=== PATIENT | male | born 1950 | race Caucasian/White ===

== ENCOUNTER 2017-08-06 17:39 | Emergency (ER) | payer MEDICARE, BC ==
[~2017-08-06] VITALS: Ht 177.8 cm; Wt 94.1 kg
[~2017-08-06 17:39] MED LIST: KETOROLAC10 MG PO; NO HOME MEDICATIONS
[2017-08-06] MEDS ORDERED: PRINIVIL10 MG PO (18:08)
[2017-08-06 18:21] LABS: BASO % 0.3 % (0.0-2.0); EOS # 0.1 (0.0-0.7); EOS % 1.1 % (0-4.0); GRAN # 7.6 (1.4-6.5); GRAN % 78.8 % (42.2-75.2); HEMATOCRIT 44.7 % (42.0-52.0); HEMOGLOBIN 15.5 g/dl (13.5-18.0); LYMPH # 1.1 (1.2-3.4); LYMPH % 11.4 % (20.0-51.0); MEAN CELL VOLUME 93 fl (80.0-100.0); MEAN CORPUSCULAR HEMOGLOBIN 32 pg (27.0-31.0); MEAN CORPUSCULAR HGB CONC 35 g/dl (33.0-37.0); MEAN PLATELET VOLUME 8.2 fl (7.4-10.4); MONO # 0.8 (0.1-0.6); MONO % 8.1 % (1.7-9.3); PLATELET COUNT 222 K/mm3 (130-400)
[2017-08-06 18:29] VITALS: TEMP 98.5
[2017-08-06 18:33] LABS: C-REACTIVE PROTEIN 1.7 mg/dL (0.0-0.9); CALCIUM 8.9 mg/dL (8.4-10.2); CREATININE, serum 0.7 mg/dL (0.66-1.25); POTASSIUM 3.7 mmol/L (3.4-5.0)
[2017-08-06] MEDS ORDERED: MEDROL 4MG DOSPA4 MG PO (19:33)
[2017-08-06] MEDS ORDERED: AMOXICILLIN 8751 TAB PO (19:33)
[2017-08-06] MEDS ORDERED: NORCO 325 MG-51 TAB PO (19:33)
[2017-08-06 19:43] VITALS: BP 175/102; PULSE 87
== END 2017-08-06 19:45 | disposition home or self-care (01) ==
LOC: COL.ER 17:39
PROVIDERS: Emergency Medicine
DX: K08.89 Other specified disorders of teeth and supporting structures (principal); K13.70 Unspecified lesions of oral mucosa; R68.84 Jaw pain; I10 Essential (primary) hypertension; Z87.442 Personal history of urinary calculi; Z96.641 Presence of right artificial hip joint
CPT/HCPCS: J1885; Q9967

== ENCOUNTER 2020-03-15 11:10 | Emergency (ER) | payer MEDICARE, BC ==
[~2020-03-15] VITALS: Ht 175.3 cm; Wt 93.2 kg
[~2020-03-15 11:10] MED LIST changes: +AMOXICILLIN 8751 TAB PO; +MEDROL 4MG DOSPA4 MG PO; +NORCO 325 MG-51 TAB PO; +PRINIVIL10 MG PO
[2020-03-15 11:18] VITALS: BP 147/86; TEMP 98
[2020-03-15 12:29] LABS: BASO % 0.3 % (0.0-2.0); EOS # 0.1 (0.0-0.7); EOS % 1.1 % (0-4.0); GRAN # 5.5 (1.4-6.5); GRAN % 78.5 % (42.2-75.2); HEMATOCRIT 42.4 % (42.0-52.0); HEMOGLOBIN 14.5 g/dl (13.5-18.0); LYMPH # 0.9 (1.2-3.4); LYMPH % 13.4 % (20.0-51.0); MEAN CELL VOLUME 98 fl (80.0-100.0); MEAN CORPUSCULAR HEMOGLOBIN 33 pg (27.0-31.0); MEAN CORPUSCULAR HGB CONC 34 g/dl (33.0-37.0); MEAN PLATELET VOLUME 8.5 fl (7.4-10.4); MONO # 0.4 (0.1-0.6); MONO % 6.1 % (1.7-9.3); PLATELET COUNT 216 K/mm3 (130-400); RED BLOOD COUNT 4.35 M/mm3 (4.20-5.60); REDCELL DISTRIBUTION WIDTH-CV 13.1 % (11.5-14.5)
[2020-03-15 12:32] LABS: ALANINE AMINOTRANSFERASE 20 U/L (4-49); ALBUMIN 4.4 gm/dL (3.5-5.0); ALKALINE PHOSPHATASE 66 U/L (50-136); ANION GAP 11 mmol/L (7-16); AST,SGOT 22 U/L (15-37); BLOOD UREA NITROGEN 24 mg/dL (9-20); CALCIUM 9.4 mg/dL (8.4-10.2); CARBON DIOXIDE 24 mmol/L (22-30); CHLORIDE 106 mmol/L (98-107); CREATININE, serum 0.92 (0.66-1.25); GLUCOSE 126 mg/dL (74-106); POTASSIUM 4.8 mmol/L (3.4-5.0); SODIUM 141 mmol/L (137-145); TOTAL PROTEIN 6.9 gm/dL (6.4-8.2)
[2020-03-15 12:44] LABS: TROPONIN-I < 0.012 ng/mL (0.000-0.035)
[2020-03-15] MEDS ORDERED: ANTIVERT 25MG25 MG PO (13:50)
[2020-03-15 14:05] VITALS: PULSE 80
== END 2020-03-15 14:05 | disposition home or self-care (01) ==
LOC: COL.ER 11:10
PROVIDERS: Nurse Practitioner Primary Care
DX: R42 Dizziness and giddiness (principal); I10 Essential (primary) hypertension; Z98.890 Other specified postprocedural states